=== PATIENT | male | born 1970 | race Asian ===

== ENCOUNTER 2024-01-21 07:11 | Day surgery (SDC) | payer OTHER ==
[~2024-01-21] VITALS: Ht 160 cm; Wt 56.7 kg
[2024-01-21] MEDS ORDERED: fentaNYL CITRATE/PF 100 MCG/2 ML AMP ONE (07:40)
[2024-01-21] MEDS ORDERED: MIDAZOLAM HCL 5 MG/5 ML VIAL ONE (07:41)
[2024-01-21 13:02] VITALS: O2SAT 99
[2024-01-21 16:24] VITALS: BP_SYST 114; PULSE 85; RESP 15
== END 2024-01-21 10:04 | disposition home or self-care (01) ==
LOC: SDS 07:11 → SMU 07:32 → SDS 10:04
PROVIDERS: ATTEND Internal Medicine
DX: Z12.11 Encounter for screening for malignant neoplasm of colon (principal); K63.5 Polyp of colon; K57.30 Diverticulosis of large intestine without perforation or abscess without bleeding; E78.5 Hyperlipidemia, unspecified; Z79.899 Other long term (current) drug therapy
CPT/HCPCS: 45380; 88305; 99152; G0378; J2250; J3010